=== PATIENT | female | born 1930 | race Caucasian/White ===

== ENCOUNTER 2017-06-01 03:30 | Outpatient (CLI) | payer MEDICARE, BC ==
[2017-06-01 15:13] LABS: BILIRUBIN,URINE NEGATIVE (NEGATIVE)
[2017-06-01 15:16] LABS: UA CHARGE (STRIP ONLY) YES; UR CULTURE IF IND NOT INDICATED
== END 2017-06-01 03:31 | disposition home or self-care (01) ==
LOC: LAB.R 03:30
PROVIDERS: ATTEND Internal Medicine
DX: N39.0 Urinary tract infection, site not specified (principal)
CPT/HCPCS: 81001; 81003; 87086

== ENCOUNTER 2020-05-28 17:04 | Emergency (ER) | payer BC, MEDICARE ==
[2020-05-28] MEDS ORDERED: BUPIVACAINE 0.5% PF 10 ML VIAL SUBQ STA (17:17)
[2020-05-28] MEDS ORDERED: HYDROcod/ACETAM 5/325 MG TABLET PO STA (17:17)
--- NOTE | 2020-05-28 17:21 | ED Physician Documentation ---
PD HPI UPPER EXT INJURY - Stated complaint Stated Complaint: GLF,LT WRIST PX - History obtained from History obtained from: Patient (Trip and fall onto an outstretched left wrist with deformity and pain there. No other injuries.) Review of Systems Constitutional: reports: Reviewed and negative Eyes: reports: Reviewed and negative Ears: reports: Reviewed and negative Nose: reports: Reviewed and negative Throat: reports: Reviewed and negative PD PAST MEDICAL HISTORY - Past Medical History Cardiovascular: Hypertension Respiratory: None Endocrine/Autoimmune: None GI: GERD : Incontinence, Nocturia HEENT: Chronic hearing loss Psych: None Musculoskeletal: Osteoarthritis Derm: None - Past Surgical History Ortho: Knee replacement, Rotator cuff repair /ACID CONCENTRATOR: Hysterectomy, Other HEENT: Cataracts, Tonsil/Adenoidectomy - Present Medications Home Medications: Ambulatory Orders Medication Instructions Recorded Confirmed Losartan Potassium 50 mg PO QPM 05/12/17 05/13/17 amLODIPine [Norvasc] 5 mg PO QPM 05/12/17 05/13/17 Ciprofloxacin HCl [Cipro] 500 mg PO BID #28 tablet 05/14/17 HYDROcod/ACETAM 5/325 [[place] 5/325] 1 - 2 tab PO Q6H PRN #15 tablet 05/28/20 - Allergies Allergies/Adverse Reactions: Allergies Allergy/AdvReac Type Severity Reaction Status Date / Time Penicillins Allergy Unknown Verified 05/28/20 17:23 Sulfa (Sulfonamide Allergy Unknown Verified 05/28/20 17:23 Antibiotics) - Social History Does the pt smoke?: No Smoking Status: Never smoker - POLST Patient has POLST: No POLST Status: Full Code PD ED PE NORMAL - Vitals Vital signs reviewed: Yes - General General: Alert and oriented X 3, No acute distress - HEENT HEENT: PERRL, EOMI - Neck Neck: Supple, no meningeal sign, No bony TTP - Extremities Extremities: Other (Dinner fork deformity of the left wrist consistent with dorsally angulated Colles' fracture. She also has a hematoma on the lateral humerus, but no bony tenderness or limited range of motion there) - Neuro Neuro: Alert and oriented X 3, Normal speech, Other (NVI L hand) Results - Vitals Vitals: Vital Signs - 24 hr 05/28/20 05/28/20 05/28/20 17:10 17:22 18:40 Temperature 36.5 C 36.5 C Heart Rate 92 92 91 Respiratory 18 18 18 Rate Blood Pressure 177/93 H 177/93 H 153/88 H O2 Saturation 99 99 98 Oxygen O2 Source Room air - Rads (name of study) Pre and post views of the Left wrist Radiology: EMP read contemporaneously (She has an angulated Colles' fracture, the alignment did improve with the reduction but it is not perfect.) Procedures - Splint (location) LUE Splint applied by: Tech Type of splint: Fiberglass, Long arm, Sugar tong Other: Patient tolerated well, Neurovascular intact, Sling provided - Reduction Body part reduced: Left, Wrist Fracture or dislocation: Fracture dislocation Anesthesia: Hematoma block (3ml bupivacaine after chloraprep) Reduction aftercare: Alignment improved, Splint applied, Sling Departure - Departure Disposition: 01 Home, Self Care Clinical Impression: Colles' fracture of left radius Qualifiers: Encounter type: initial encounter Fracture type: closed Qualified Code(s): S52.532A - Colles' fracture of left radius, initial encounter for closed fracture Condition: Good Record reviewed to determine appropriate education?: Yes Instructions: ED Fx Forearm Radius Ulna Redu Requ Follow-Up: [facility] [Provider Group] Prescriptions: HYDROcod/ACETAM 5/325 [[place] 5/325] 1 - 2 tab PO Q6H PRN #15 tablet PRN Reason: Pain Comments: Your wrist is much straighter and I think it is unlikely that you will need surgery, but you need to follow-up with the orthopedic surgeons, call them on Sunday for an appointment this week. Return for new or worsening symptoms. Elevate the wrist as much as possible. Keep the splint on and dry, do not remove it. Tylenol if pain is just mild Do not drink or drive while taking narcotic pain medication. Note that many narcotic pain relievers also contain Tylenol/acetaminophen. Please ensure that your total dose of acetaminophen from all sources does not exceed 3 g (3000 mg) per day. You may get constipated while on this medication. Take a stool softener such as Colace twice a day while you are on it. Also add an xgad-ief-opdxhbo laxative such as senna or MiraLAX on any day that you do not have a bowel movement. If you received a narcotic pain medication or sedative while in the emergency department, do not drive for the next 24 hours. Discharge Date/Time: 05/28/20 18:47
--- NOTE | 2020-05-28 18:06 | XRAY Report ---
PROCEDURE: Wrist 3 View LT INDICATIONS: wrist inj TECHNIQUE: 3 views of the wrist were acquired. COMPARISON: None FINDINGS: Bones: 3 views of the left distal wrist demonstrate a distal radius fracture with dorsal angulation. There are degenerative changes of the first carpometacarpal joint and triscaphe joint Scaphoid view: No scaphoid fracture is identified. Soft tissues: No suspicious soft tissue calcifications. IMPRESSION: 1. Distal radius fracture with 45 degrees dorsal angulation. 2. Degenerative changes of the first carpometacarpal joint and triscaphe joint consistent with osteoa rthritis. Reviewed by: Jesus Alberto Rogers on 05/28/2020 6:04 PM [facility] Approved by: Jesus Alberto Rogers on 05/28/2020 6:04 PM [facility] Station ID: [id number]
[2020-05-28 18:41] VITALS: BP 153/88
--- NOTE | 2020-05-28 19:34 | XRAY Report ---
PROCEDURE: Wrist 2 View LT INDICATIONS: post reduction TECHNIQUE: Multiple views of the wrist were acquired. COMPARISON: Earlier today FINDINGS: 4 views of the left wrist were performed in a sugar tong splint. There is a distal radius fracture wi th dorsal angulation. Degenerative changes of the first carpometacarpal joint and triscaphe joint are seen. IMPRESSION: Postreduction views demonstrate a distal radius fracture with persistent dorsal angulatio n. Reviewed by: Jesus Alberto Rogers on 05/28/2020 7:33 PM PST Approved by: Jesus Alberto Rogers on 05/28/2020 7:33 PM PST Station ID: [id number]
== END 2020-05-28 18:47 | disposition home or self-care (01) ==
LOC: ED 17:04
DX: S52.532A Colles' fracture of left radius, initial encounter for closed fracture (principal); W01.0XXA Fall on same level from slipping, tripping and stumbling without subsequent striking against object, initial encounter; I10 Essential (primary) hypertension
CPT/HCPCS: 25605; 73100; 73110; 99283; 99284; A9270